=== PATIENT | male | born 1995 ===

== ENCOUNTER 2023-09-01 09:06 | Day surgery (SDC) | payer BC ==
[2023-08-31 10:58] VITALS: BMI 33.1
[2023-09-01] MEDS ORDERED: SUGAMMADEX SODIUM 200 MG/2 ML VIAL ONE ×2 (10:29→12:01)
[2023-09-01] MEDS ORDERED: fentaNYL PF 100 MCG/2 ML SYRINGE ONE (10:29)
[2023-09-01] MEDS ORDERED: Rocuronium Bromide 10 MG/ML (10ML VIAL) ONE (10:29)
[2023-09-01] MEDS ORDERED: PROPOFOL 40 ML ONE (10:29)
[2023-09-01] MEDS ORDERED: Dexamethasone 4 mg/ml Vial ONE (10:29)
[2023-09-01] MEDS ORDERED: Lidocaine 1% PF 5 ML VIAL ONE (10:29)
[2023-09-01] MEDS ORDERED: Ondansetron PF 4 MG/2 ML Vial ONE (10:29)
[2023-09-01] MEDS ORDERED: AFRIN NASAL MIST 15 ML BOT ONE ×2 (10:49→11:13)
[2023-09-01] MEDS ORDERED: Bacitracin Zinc Ointment 30 gm TUBE ONE (11:13)
[2023-09-01] MEDS ORDERED: EPINEPHrine 1 MG/ML VIAL ONE (11:13)
[2023-09-01] MEDS ORDERED: Lidocaine 1% (PF) 30 ML VIAL ONE (11:14)
[2023-09-01] MEDS ORDERED: fentaNYL 50 mcg/mL 1 mL Vial ONE ×2 (12:32→12:58)
[2023-09-01] MEDS ORDERED: Hydrocodone-Acetamin 15 ML UDCUP ONE (14:49)
== END 2023-09-01 15:16 | disposition home or self-care (01) ==
LOC: SDC 09:06
PROVIDERS: ATTEND Specialist
PROC: 09BM3ZZ Excision of Nasal Septum, Percutaneous Approach (ICD-10-PCS; principal; 2023-09-01)
PROC: 09TL7ZZ Resection of Nasal Turbinate, Via Natural or Artificial Opening (ICD-10-PCS; principal; 2023-09-01)
DX: J34.2 Deviated nasal septum (principal); J34.3 Hypertrophy of nasal turbinates; G47.30 Sleep apnea, unspecified
CPT/HCPCS: J0171; J1100; J2001; J2405; J2704; J3010